=== PATIENT | female | born 1990 | race Caucasian/White ===

== ENCOUNTER 2019-06-03 17:30 | Inpatient (IN) ==
[~2019-06-03 17:30] MED LIST: *HR* Nalbuphine 10 MG/ML AMPUL IVP PRN; Famotidine 20 MG/2 ML VIAL IVP PRN; Metoclopramide 10 MG/2 ML VIAL IVP PRN; Naloxone 0.4 MG/ML INJ IVP PRN; Ondansetron 4 MG/2 ML VIAL IVP PRN; Ringers Solution, Lactated 1,000 ML IVC SCH
[2019-06-03 17:52] LABS: Basophils % 0.3 %; Eosinophils # 0.1 K/mcL (0.0-0.6); Eosinophils % 0.3 %; Hematocrit 34.5 % (35.3-44.9); Hemoglobin 11.5 g/dL (11.5-15.4); Immature Granulocytes % 0.5 % (0-4); Lymphocytes # 2.4 K/mcL (0.6-4.6); Lymphocytes % 16.2 %; Mean Corpuscular HGB Conc 33.3 g/dL (31.6-35.5); Mean Corpuscular Hemoglobin 29.5 pg (28.0-33.3); Mean Corpuscular Volume 88.5 fL (83.0-100.0); Mean Platelet Volume 9.3 fL (9.4-12.4); Monocytes # 0.5 K/mcL (0.0-1.3); Monocytes % 3.1 %; Neutrophils # 11.9 K/mcL (1.6-8.9); Platelet Count 350 K/mcL (140-400); Segmented Neutrophils % 79.6 %
[2019-06-03 17:59] LABS: Amphetamine Screen,Urine Negative ng/mL (Cutoff=1000); Barbiturate Screen,Urine Negative ng/mL (Cutoff=200); Benzodiazepines Screen,Urine Negative ng/mL (Cutoff=200); Cannabinoid Screen,Urine Negative ng/mL (Cutoff = 50); Cocaine Screen,Urine Negative ng/mL (Cutoff= 300); Opiate Screen,Urine Negative ng/mL (Cutoff=300); Phencyclidine Screen,Urine Negative ng/mL (Cutoff=25)
--- NOTE | 2019-06-03 18:06 | OB/GYN History & Physical ---
Date of Encounter: 06/03/19 Time of Encounter: 17:47 Assessment and Plan (1) 40 weeks gestation of Current visit: Yes Status: Acute (2) SROM (spontaneous rupture of membranes) Current visit: Yes Status: Acute Admit to labor and delivery GBS negative Expectant management at this time Nubain and epidural as desired Anticipate History of Present Illness HPI: Ms. Chung is a 29 year old female 40+1 weeks gestation presents to triage with complaints of contractions. In started having strong contractions this afternoon, and started to have leaking of fluid in her car on arrival to the hospital. Oriented exam shows gross rupture membranes. Reports good movement, denies vaginal bleeding. care with nurse midwives, uncomplicated course. Labs: A+, rubella and varicella immune, GBS negative, all other serologies negative Past Med Surg Social Fam HX - Past Surgical History Additional surgical history: tonsils Obstetrical History - Pregnancies : 2 Para: 1 Term: 1 : 0 Ab's: 0 Livin Medications and Allergies Pnv No.95/Ferrous Fum/Folic AC [ Caplet] 1 tab PO DAILY 06/03/19 [History] Allergy/AdvReac Type Severity Reaction Status Date / Time No Known Allergies Allergy Verified 06/03/19 17:43 Exam - Constitutional Constitutional: well developed, well nourished, no acute distress, average body habitus - Neck Neck exam: nuchal rigidity - Lungs Respiratory exam: CTAB - Cardiovascular Cardiovascular exam: RRR - Abdomen Abdomen: Present: gravid, non tender - Extremities Extremities exam: normal capillary refill, normal inspection - Cervix Dilation: 4 (per RN) Results All other labs normal. - VTE Reasons for not Prescribing Prophylaxis: Treatment not Indicated - Low risk for VTE
[2019-06-03] MEDS ORDERED: EPHEDrine 50 MG/ML VIAL IVP PRN (18:46)
--- NOTE | 2019-06-03 18:46 | Anesthesia Evaluation PreOp ---
Date of Encounter: 06/03/19 Time of Encounter: 18:43 - Past History Planned Operation: riley Cardiac History: Denies any Significant Hx Pulmonary History: Denies Any Significant HX FORKLIFT PICKER History: Denies Any Significant HX Other Medical History: Denies Any Significant HX Anesthesia History: No Prior Anesthetic Complications, Past Anesthesia : Yes (40 weeks, ) Alcohol Use: none Drug use: none Medications and Allergies Pnv No.95/Ferrous Fum/Folic AC [ Caplet] 1 tab PO DAILY 06/03/19 [History] Allergy/AdvReac Type Severity Reaction Status Date / Time No Known Allergies Allergy Verified 06/03/19 17:43 - Meds/Allergy Pre-op Review Medications Reviewed: Yes Allergies Reviewed: Yes Beta Blockers on Current Med List: No Anesthesia Results - Labs 06/03/19 17:25 Anesthesia Exam O2 Sat Height 1.65 m Height 1.65 m Weight 90.174 kg Weight 90.174 kg Height: 65 Weight: 90 - HEENT Pupil (Motor): Pupils equal Mallampati: I Teeth: Normal Oral Opening: Greater than 3 - FORKLIFT PICKER LOC: Oriented FORKLIFT PICKER Motor: Normal RUE, Normal LUE, Normal RLE, Normal LLE, Normal Face FORKLIFT PICKER Sensory: Normal: RUE, LUE, RLE, LLE, Face - Cardiac Rhythm: Regular Murmur: None JVD: No Carotid Bruit: No - Pulmonary Breath Sounds: bilateral Clear Respiratory Effort: Symmetrical Anesthesia Assess/Plan ASA Score: 2 Level of consciousness: Cooperative Anesthetic Plan: Epidural Monitoring Plan: Standard Monitors
[2019-06-03] MEDS ORDERED: Epidural Premix (fent/bupiv) 110 ML EP SCH (19:00)
[2019-06-03] MEDS ORDERED: Ropivacaine/PF 0.2% 20 ML VIAL ONE (21:33)
[2019-06-03] MEDS ORDERED: *HR* FentaNYL (PF) 100 MCG/2 ML VIAL ONE (21:33)
--- NOTE | 2019-06-03 22:04 | Anesthesia Procedures ---
Date of Encounter: 06/03/19 Time of Encounter: 21:38 (procedure end time 2203) Procedures: Anesthesia - Epidural/Spinal Patient ID/Chart reviewed: Yes Patient examined: Yes OB Eval: Contractions: Non-stressed pattern Consent Obtained: Yes Supplemental Oxygen: None/Room Air Site Prep: Aseptic Technique Patient position: upright Local Anesthetic: Lidocaine 1% Amount of Local Anesthetic used: 3 Touhy Needle Gauge: 18 Touhy Needle Depth (cm): 8 Catheter Depth at Skin (cm): 14 Test Dose (1.5% Lido + Epi): Volume given (mls): 3 Test Dose Result: Negative Loading Dose: Fentanyl (mcg): 100 Loading Dose: Other: 6ml 0.2% ropivicaine Loading Dose Administered: Thru Touhy Needle Infusion Med: 0.125% Bupivacaine w/ 2 mcg/ml Fentanyl Infusion Rate (mls/hr): [address]: Tegaderm Interspace Used: L4-L5 Loss of Resistance (DIGNA): Yes Blood: No CSF: No Paresthesia: No Procedure: STrict asepsis, one attempt without any redirections. Good DIGNA, no heme, no CSF, no parasthesias. FHR unchanged.
--- NOTE | 2019-06-03 23:04 | OB Labor Progress Note ---
Date of Encounter: 06/03/19 Time of Encounter: 23:02 Labor Progress Note - Subjective Subjective: comfortable with epidural - Cervix Cervix: 6/80/-1 per RN - Heart Tones Heart Tones: 130/moderate/+accels/-decels - [place] Novinger: 1-4 - Plan Plan: Continue expectant management frequent repositioning anticipate
--- NOTE | 2019-06-04 01:10 | OB Labor Progress Note ---
Date of Encounter: 06/04/19 Time of Encounter: 01:08 Labor Progress Note - Subjective Subjective: comfortable with epidural - Cervix Cervix: 8/90/-1 - Heart Tones Heart Tones: 130/moderate/+accels/variable - [place]: 2-4 - Plan Plan: frequent repositioning with peanut ball anticipate
[2019-06-04] MEDS ORDERED: Oxytocin 20 units/ LR 1000 mL 20 UNIT/1,000 ML BAG IVC ONE (02:20)
[2019-06-04] MEDS ORDERED: Acetaminophen 325 MG TABLET PO ONE (04:38)
--- NOTE | 2019-06-04 05:47 | OB/GYN Procedure Note ---
Delivery - Delivery Date: 06/04/19 Provider: Darshana Chung Delivery induction: none Delivery monitor: external FHT, external uterine Anesthesia: epidural Quantitated Blood Loss: 150 - Repair Episiotomy: none Laceration Description: None - Complications Delivery complications: none Delivery comments: Spontaneous onset of labor with spontaneous rupture membranes. Progressed to complete. Maternal bearing down efforts to of liveborn male. Vertex delivered OA, shoulders and body easily followed, no nuchal cord or shoulder dystocia encountered. Vigorous placed on maternal abdomen for drying and stimulation. Apgars 8/9. Placenta delivered spontaneously (Bourgeois) complete and intact upon inspection. Pitocin started per policy and fundus massaged until firm. No perineal lacerations noted. EBL 150, mom and bonding skin to skin - Disposition Mom disposition: stable in LDR disposition: stable in LDR
[2019-06-04] MEDS ORDERED: Lanolin 28 GM TUBE TP PRN (08:04)
[2019-06-04] MEDS ORDERED: Benzocaine/Menthol 56 GM AEROSOL SPRAY TP PRN (08:04)
[2019-06-04] MEDS ORDERED: Acetaminophen 325 MG TABLET PO PRN (08:04)
[2019-06-04] MEDS ORDERED: Oxytocin 20 units/ LR 1000 mL 20 UNIT/1,000 ML BAG IVC SCH (08:04)
[2019-06-04] MEDS: Ibuprofen 600 MG TABLET PO PRN ×3 (10:13→22:02)
[2019-06-04] MEDS: Prenatal Vit/FA 1 EACH TABLET PO SCH (10:13)
[2019-06-05 08:17] VITALS: BP 100/46
[2019-06-05] MEDS: Ibuprofen 600 MG TABLET PO PRN (08:56)
[2019-06-05] MEDS: Prenatal Vit/FA 1 EACH TABLET PO SCH (08:56)
--- NOTE | 2019-06-05 10:20 | Discharge Summary ---
Date of Encounter: 06/05/19 Time of Encounter: 10:18 - Discharge Diagnosis (1) Vaginal delivery Priority: Primary Status: Acute Comments: Feeling well Tolerating regular diet Pain well-controlled with by mouth pain meds Ambulating independently Voiding independently Lochia light Passing flatus, no BM yet Vital signs stable Discharge home today (2) Breast feeding status of mother Priority: Secondary Status: Acute Comments: Community resources provided - Discharge Medications Prescriptions: New Acetaminophen [Tylenol] 650 mg PO Q6HR PRN tablet PRN Reason: Mild Pain Ibuprofen [Motrin] 600 mg PO Q6HR PRN #30 tablet PRN Reason: Cramping Benzocaine/Menthol [place] [Dermoplast [place]] 1 appl TP QID PRN aerosol PRN Reason: See Comments Docusate [Colace] 100 mg PO BID #30 capsule Lanolin 1 appl TP QID PRN tube PRN Reason: Continued Pnv No.95/Ferrous Fum/Folic AC [ Caplet] 1 tab PO DAILY Home Medications: Pnv No.95/Ferrous Fum/Folic AC [ Caplet] 1 tab PO DAILY 06/03/19 [History] Acetaminophen [Tylenol] 650 mg PO Q6HR PRN tablet 06/05/19 [Rx] Benzocaine/Menthol [place] [Dermoplast [place]] 1 appl TP QID PRN aerosol 06/05/19 [Rx] Docusate [Colace] 100 mg PO BID #30 capsule 06/05/19 [Rx] Ibuprofen [Motrin] 600 mg PO Q6HR PRN #30 tablet 06/05/19 [Rx] Lanolin 1 appl TP QID PRN tube 06/05/19 [Rx] Allergies/Adverse Reactions: Allergy/AdvReac Type Severity Reaction Status Date / Time No Known Allergies Allergy Verified 06/03/19 17:43 Data Procedures and tests throughout hospitalization: Laboratory Tests 06/03/19 06/03/19 17:25 17:25 WBC 15.0 H RBC 3.90 Hgb 11.5 Hct 34.5 L MCV 88.5 MCH 29.5 MCHC 33.3 RDW 13.0 Plt Count 350 MPV 9.3 L Immature Gran % 0.5 Seg Neutrophils % 79.6 Lymphocytes % 16.2 Monocytes % 3.1 Eosinophils % 0.3 Basophils % 0.3 Neutrophils # 11.9 H Lymphocytes # 2.4 Monocytes # 0.5 Eosinophils # 0.1 Basophils # 0.0 Urine Opiates Screen Negative Ur Buprenorphine Scrn Negative Ur Barbiturates Screen Negative Ur Phencyclidine Scrn Negative Ur Amphetamines Screen Negative U Benzodiazepines Scrn Negative Urine Cocaine Screen Negative U Marijuana (THC) Screen Negative Ur Drug Screen Interp See Below Date of admission: 06/03/19 17:30 Consults: 06/04/19 08:04 Consult to Grounds Maintenance Supervisor [CONS] Routine Comment: Vaginal delivery, consult needed Discharging clinician: Orquidea Vigil Anticipated date of discharge: 06/05/19 - Patient Status Disposition: Home, Self-Care Condition: Good Functional capacity at discharge: independent ambulation Overall status at discharge: patient is progressing back to baseline - Discharge Instructions Follow Up With: Orquidea Vigil [Advanced Practice Nurse] - - Diet and Activity Activity: increase activity as tolerated Diet: regular diet Hospital Course Reason for admission: active labor, IUP at term Delivery: Episiotomy: none Laceration: none Other procedures: none complications: none Discharge diagnosis: IUP at term delivered baby: male Time Attestation: Total time spent providing and/or coordinating discharge services: Time Spent: Less than 30 minutes Exam - Constitutional Vitals: Temp Pulse Resp BP Pulse Ox 97.4 F L 88 14 100/46 96 06/05/19 08:13 06/05/19 08:13 06/05/19 08:13 06/05/19 08:13 06/05/19 08:13 General appearance IM: A&O X 3, pleasant, no acute distress, answers questions appropriately - Respiratory Respiratory exam: Present: CTAB - Cardiovascular Cardiovascular exam IM: Present: RRR, +S1, +S2 - GI/Abdominal GI/Abdominal exam IM: normal bowel sounds, no peritoneal signs - Rectal Rectal exam: deferred - Uterine Tone: Firm Uterus Position: 2 Fingers Below Umbilicus, Midline - Extremities Exam Extremities exam IM: Present: normal capillary refill - Neurological Exam Neurological exam: alert, CN II-XII intact, normal gait, oriented X3, reflexes normal, no focal deficits, strengths equal and symetr throughout - Psychiatric Additional comments: Signs and symptoms of depression discussed with patient and partner and both verbalized understanding of when to seek help
[2019-06-05] MEDS ORDERED: FLU Vac QV 19-20 (6Month+)/PF 0.5 ML SYRINGE IM ONE (10:48)
== END 2019-06-05 17:13 | disposition home or self-care (01) | DRG 807 ==
LOC: 1NENULAB → 1NENUOBS 06-04 08:00
PROVIDERS: ADMIT Advanced Practice Midwife; ATTEND Advanced Practice Midwife